=== PATIENT | female | born 1955 | race Caucasian/White ===

== ENCOUNTER 2018-04-07 22:07 | Emergency (ER) | payer SELFPAY ==
[~2018-04-07] VITALS: Ht 170.2 cm; Wt 97.5 kg
[~2018-04-07 22:07] MED LIST: ACCUKIT11 SQ; ACCUTES19 SQ; ATEN-102 PO; GLIM2TAB PO; HYDR-2768 PO; LISI-366 PO; METF-324 PO; OMEP20TA PO
[2018-04-07 22:30] VITALS: BP 245/108; PULSE 97; RESP 16; TEMP 98.8; O2SAT 97
[2018-04-07 22:50] VITALS: BP 236/109; PULSE 85; RESP 18; O2SAT 96
[2018-04-07 23:01] VITALS: BP 192/82; PULSE 93; RESP 18
[2018-04-07] MEDS ORDERED: DAPA1TAB3 PO (23:06)
[2018-04-07] MEDS ORDERED: METF1000 PO (23:06)
[2018-04-07] MEDS ORDERED: ATEN50TA PO (23:06)
[2018-04-07] MEDS ORDERED: HYDR25TA5 PO (23:06)
[2018-04-07] MEDS ORDERED: LISI40TA PO (23:06)
[2018-04-07] MEDS ORDERED: LISINOPRIL 20 MG TAB PO ONE (23:15)
[2018-04-07] MEDS ORDERED: HYDROCHLOROTHIAZIDE 25 MG TAB PO ONE (23:15)
[2018-04-07] MEDS ORDERED: ATENOLOL 50 MG TAB PO ONE (23:15)
[2018-04-07] MEDS ORDERED: ACETAMINOPHEN/HYDROcodone 325 MG/5 MG TAB PO ONE (23:30)
--- NOTE | 2018-04-07 23:33 | RADRPT ---
EXAM DATE: 04/07/2018 11:28 PM EDT AGE/SEX: 62 years / Female INDICATIONS: Chronic low back pain down leg. CLINICAL DATA: This is the patient's initial encounter. Patient reports that signs and symptoms have been present for 2 days and indicates a pain score of 7/10. MEDICAL/SURGICAL HISTORY: None. None. COMPARISON: No prior exams available for comparison. FINDINGS: The vertebral bodies are in normal alignment without evidence of compression deformity. Discogenic sc lerosis at L2-3. Mild narrowing at L4-5 Bone density is normal for age. Soft tissues are grossly in tact. CONCLUSION: Degenerative disease at L2-3 and L4-5 similar to previous studies. Electronically signed by: Sean Monaco MD 04/07/2018 11:32 PM EDT
[2018-04-07] MEDS ORDERED: HYDR-3516 PO (23:42)
--- NOTE | 2018-04-07 23:43 | PD ---
HPI Chief Complaint: Back/ Neck Pain or Injury Time Seen by Provider: 22:46 Travel History International Travel<30 days: No Contact w/Intl Traveler<30days: No Traveled to known affect area: No History of Present Illness HPI Any rest is a 62-year-old woman presents emerged from complaining of low back pain that radiates down the left leg. She has never had it before. Starts mostly in the low back and left hip, radiates on the back. Is been ongoing for the past couple weeks, worse over the past couple days. She otherwise had been feeling generally well and healthy. No numbness tingling or weakness. Little bit worse with walking. She did not take any of her blood pressure medications today her blood pressure is high. No other complaints. History Past Medical History Narrative Medical Hypertension Diabetes Arthritis Social History Alcohol Use: No Tobacco Use: No Allergies-Medications (Allergen,Severity, Reaction): Coded Allergies: No Known Allergies (Unverified , 01/01/16) Reported Meds & Prescriptions Reported Meds & Active Scripts Active Reported Farxiga (Dapagliflozin) 10 Mg Tab 10 Mg PO DAILY Metformin (Metformin HCl) 1,000 Mg Tab 1,000 Mg PO BIDPC Lisinopril 40 Mg Tab 40 Mg PO DAILY Hydrochlorothiazide 25 Mg Tab 25 Mg PO DAILY Atenolol 50 Mg Tab 50 Mg PO DAILY Review of Systems Except as stated in HPI: all other systems reviewed are Neg Physical Exam Narrative GENERAL: 8-year-old woman, nontoxic, no acute distress. SKIN: Focused skin assessment warm/dry. HEAD: Atraumatic. Normocephalic. EYES: Pupils equal and round. No scleral icterus. No injection or drainage. ENT: No nasal bleeding or discharge. Mucous membranes pink and moist. NECK: Trachea midline. No JVD. CARDIOVASCULAR: Regular rate and rhythm. No murmur appreciated. RESPIRATORY: No accessory muscle use. Clear to auscultation. Breath sounds equal bilaterally. GASTROINTESTINAL: Abdomen soft, non-tender, nondistended. Hepatic and splenic margins not palpable. MUSCULOSKELETAL: No obvious deformities. Minimal pain with straight leg raise. Strength full and equal in the lower extremities. Sensation intact to light touch and equal. Data Data Last Documented VS Vital Signs Date Time Temp Pulse Resp B/P (MAP) Pulse Ox O2 Delivery O2 Flow Rate FiO2 04/07/18 23:01 93 18 192/82 (118) 6/19/18 22:50 96 Room Air 04/07/18 22:30 98.8 Orders Orders Spine, Lumbar Comp W/Obliq (04/07/18 ) Lisinopril (Prinivil) (04/07/18 23:15) Atenolol (Tenormin) (04/07/18 23:15) Hydrochlorothiazide (Hydrodiuril) (04/07/18 23:15) Acetamin-Hydrocod 325-5 Mg ([place] 5-325 (04/07/18 23:30) MDM Medical Decision Making Medical Screen Exam Complete: Yes Emergency Medical Condition: Yes Differential Diagnosis Sciatica, compression fracture, malignancy or tumor, other Narrative Course Medical decision making There is a 8-year-old woman presents to the emergency department complaining of radicular low back pain in the left leg, likely sciatica. Looks well. Pains are really well controlled at this point. Blood pressures pretty high. She may have some chronic kidney disease. Would like to avoid NSAIDs. She is also diabetic. Consider short course of steroids I think her blood sugar is not out of control. Opioid sparingly as needed. Diagnosis Primary Impression: Sciatica associated with disorder of lumbar spine Additional Instructions: Take acetaminophen 1000 mg 3 times daily. You may substitute Lortab for acetaminophen if needed for severe pain. Take with stool softeners to prevent constipation. Return to the emergency department for any new or worsening symptoms. Med/Other Pt SpecificInfo: Prescription(s) given Scripts Hydrocodone/Acetaminophen (Hydrocodone-Acetamin 5-325 mg) 5 Mg-325 Mg Tablet 1 TAB PO Q6HR Y for PAIN SCALE 1 TO 10, #15 Prov: Sean Moraes MD 04/07/18 Disposition: 01 DISCHARGE HOME Condition: Stable Sean Moraes MD Apr 07, 2018 23:42
[2018-04-08] MEDS ORDERED: METF1000 PO (00:09)
[2018-04-08] MEDS ORDERED: DAPA1TAB3 PO (00:09)
[2018-04-08] MEDS ORDERED: HYDR25TA5 PO (00:09)
[2018-04-08] MEDS ORDERED: LISI40TA PO (00:09)
[2018-04-08] MEDS ORDERED: ATEN50TA PO (00:09)
== END 2018-04-08 00:11 | disposition home or self-care (01) ==
LOC: NEPD 22:07
DX: M54.32 Sciatica, left side (principal); M51.36 Other intervertebral disc degeneration, lumbar region; E11.9 Type 2 diabetes mellitus without complications; I10 Essential (primary) hypertension; M19.90 Unspecified osteoarthritis, unspecified site; Z79.899 Other long term (current) drug therapy
CPT/HCPCS: 72110; 99283